=== PATIENT | female | born 1975 | race American Indian/Alaskan Native ===

== ENCOUNTER 2017-10-31 09:16 | Emergency (ER) | payer MEDICAID ==
[2017-10-31 09:17] VITALS: BMI 33.0
[2017-10-31 10:08] VITALS: BP 145/85; PULSE 71
[2017-10-31 10:42] VITALS: RESP 18; TEMP 97.8; O2SAT 99
[2017-10-31] MEDS ORDERED: Sodium Chloride 0.9% 1,000 ML IV STA (11:05)
--- NOTE | 2017-10-31 11:08 | ED PDOC ---
HPI: Female Pain Time Seen by Provider: 10/31/17 11:06 Chief Complaint (Nursing): Female Genitourinary Chief Complaint (Provider): VAGINAL BLEEDING History Per: Patient (42 Y/O FEMALE HERE WITH VAGINAL BLEEDING THIS MONTH. STATES SHE HAD 3 WEEKS OF VAGINAL BLEDING 10/02/2017 AND THEN REPEAT BLEEDING MONDAY (4 DAYS AGO). NOTES HEAVY BLEEDING. ) Past Medical History Reviewed: Historical Data, Nursing Documentation, Vital Signs Vital Signs: Last Vital Signs Temp 97.8 F 10/31/17 10:15 Pulse 71 10/31/17 10:15 Resp 18 10/31/17 10:15 BP 145/85 10/31/17 10:15 Pulse Ox 99 10/31/17 10:15 - Medical History PMH: Anxiety, Asthma - Family History Family History: States: No Known Family Hx - Immunization History Hx Tetanus Toxoid Vaccination: No Hx Influenza Vaccination: No Hx Pneumococcal Vaccination: No - Allergies Allergies/Adverse Reactions: Allergies Allergy/AdvReac Type Severity Reaction Status Date / Time No Known Allergies Allergy Verified 10/31/17 10:06 Review of Systems ROS Statement: Except As Marked, All Systems Reviewed And Found Negative Physical Exam - Reviewed Nursing Documentation Reviewed: Yes Vital Signs Reviewed: Yes - Physical Exam Appears: Positive for: Well, Non-toxic, No Acute Distress Head Exam: Positive for: ATRAUMATIC, NORMAL INSPECTION, NORMOCEPHALIC Skin: Positive for: Normal Color, Warm, DRY Eye Exam: Positive for: EOMI, Normal appearance, PERRL ENT: Positive for: Normal ENT Inspection Neck: Positive for: Normal, Painless ROM Cardiovascular/Chest: Positive for: Regular Rate, Rhythm Respiratory: Positive for: CNT, Normal Breath Sounds Gastrointestinal/Abdominal: Positive for: Normal Exam, Bowel Sounds, Soft Back: Positive for: Normal Inspection Extremity: Positive for: Normal ROM Neurologic/Psych: Positive for: Alert, Oriented - Laboratory Results Result Diagrams: 10/31/17 11:30 10/31/17 11:30 - ECG O2 Sat by Pulse Oximetry: 99 - Progress ED Course And Treament: PATIENT ELOPED FROM ED PRIOR TO TRANSVAGINAL US. CBC NOTED WNL. Disposition - Clinical Impression Clinical Impression: Vaginal bleeding - Patient ED Disposition Is Patient to be Admitted: No - Disposition Disposition: Left W/O Treatment Disposition Time: 14:21 Condition: STABLE Forms: [employer] (Bengali)
[2017-10-31 11:45] LABS: BASO # 0.1 K/uL (0.0-0.2); BASO % 1.1 % (0.0-2.0); EOS # 0.1 K/uL (0.0-0.7); EOS % 1.4 % (0.0-4.0); HEMOGLOBIN 12.9 g/dL (12.0-16.0); LYMPH # 2.6 K/uL (1.0-4.3); LYMPH % 36.8 % (20.0-40.0); MEAN CELL VOLUME 87.2 fl (81.0-99.0); MEAN CORPUSCULAR HEMOGLOBIN 29.4 pg (27.0-31.0); MEAN CORPUSCULAR HGB CONC 33.7 g/dL (33.0-37.0); MEAN PLATELET VOLUME 8.9 fl (7.2-11.7); MONO # 0.8 K/uL (0.0-0.8); MONO % 11.7 % (0.0-10.0); NEUT # 3.5 K/uL (1.8-7.0); NRBC % 0.2 % (0.0-0.0); RBC 4.4 Mil/uL (3.80-5.20); RED CELL DISTRIBUTION WIDTH 14.5 % (11.5-14.5); WHITE BLOOD COUNT 7.1 K/uL (4.8-10.8)
[2017-10-31 11:47] LABS: PROTHROMBIN TIME 11.2 Seconds (9.8-13.1)
[2017-10-31 11:54] LABS: ALB/GLOB RATIO 1.2 (1.0-2.1); ALBUMIN 4.1 g/dL (3.5-5.0); ALT/SGPT 28 U/L (9-52); AST/SGOT 24 U/L (14-36); BLOOD UREA NITROGEN 11 mg/dl (7-17); GFR AFRICAN-AMERICAN > 60; GFR NON-AFRICAN AMERICAN > 60
== END 2017-10-31 11:45 | disposition home or self-care (01) ==
LOC: H.ER 09:16
DX: N93.9 Abnormal uterine and vaginal bleeding, unspecified (principal); J45.909 Unspecified asthma, uncomplicated; F41.9 Anxiety disorder, unspecified

== ENCOUNTER 2017-10-31 18:21 | Emergency (ER) | payer MEDICAID ==
[2017-10-31 18:21] VITALS: BMI 33.0
--- NOTE | 2017-10-31 19:13 | ED PDOC ---
HPI: Female Pain Time Seen by Provider: 10/31/17 19:11 Chief Complaint (Nursing): Female Genitourinary Chief Complaint (Provider): VAGINAL BLEEDING History Per: Patient (42 Y/O FEMALE HERE FOR VAGINAL BLEEDING. SEEN EARLIER IN ED WITH HGB STABLE AND PENDING TRANSVAGINAL US. PATIENT ELOPED EARLIER PRIOR TO US. HAS HAD 2 ADDITIONAL PADS WITH VAGINAL BLEEDING TODAY. ) Past Medical History Reviewed: Historical Data, Nursing Documentation, Vital Signs Vital Signs: Last Vital Signs Temp 97.6 F 10/31/17 18:52 Pulse 64 10/31/17 18:52 Resp 19 10/31/17 18:52 BP 147/87 10/31/17 18:52 Pulse Ox 98 10/31/17 18:52 - Medical History PMH: Anxiety, Asthma - Family History Family History: States: No Known Family Hx - Immunization History Hx Tetanus Toxoid Vaccination: No Hx Influenza Vaccination: No Hx Pneumococcal Vaccination: No - Allergies Allergies/Adverse Reactions: Allergies Allergy/AdvReac Type Severity Reaction Status Date / Time No Known Allergies Allergy Verified 10/31/17 10:06 Review of Systems ROS Statement: Except As Marked, All Systems Reviewed And Found Negative Physical Exam - Reviewed Nursing Documentation Reviewed: Yes Vital Signs Reviewed: Yes - Physical Exam Appears: Positive for: Well, Non-toxic, No Acute Distress Head Exam: Positive for: ATRAUMATIC, NORMAL INSPECTION, NORMOCEPHALIC Skin: Positive for: Normal Color, Warm, DRY Eye Exam: Positive for: EOMI, Normal appearance, PERRL ENT: Positive for: Normal ENT Inspection Neck: Positive for: Normal, Painless ROM Cardiovascular/Chest: Positive for: Regular Rate, Rhythm Respiratory: Positive for: CNT, Normal Breath Sounds Gastrointestinal/Abdominal: Positive for: Normal Exam, Bowel Sounds, Soft Pelvic Exam: Positive for: Active Bleeding (VAGINAL BLEEDING NOTED IN VAULT MILD. NO CLOTS) Back: Positive for: Normal Inspection Extremity: Positive for: Normal ROM Neurologic/Psych: Positive for: Alert, Oriented - ECG O2 Sat by Pulse Oximetry: 98 - Progress ED Course And Treament: CBC FROM ED VISIT EARLIER TODAY STABLE. PATIENT DOES NOT WANT ANY MORE BLOODWORK TODAY. Disposition - Clinical Impression Clinical Impression: Vaginal bleeding - Patient ED Disposition Is Patient to be Admitted: Transfer of Care - Disposition Disposition: Transfer of Care Disposition Time: 20:00 Condition: FAIR Forms: [employer] (Barbadian) Patient Signed Over To: Natalie Fulton Handoff Comments: PENDING US TRANSVAGINAL
--- NOTE | 2017-10-31 22:55 | ED PDOC ---
- ECG O2 Sat by Pulse Oximetry: 98 - Progress ED Course And Treament: Case endorsed to senior writer from [facility] pending u/s EXAM: US Pelvis Complete, Transabdominal US Duplex Arterial/Venous of the Pelvis, Complete EXAM DATE/TIME: 10/31/2017 7:29 PM CLINICAL HISTORY: 42 years old, female; Signs and symptoms; Menstruation abnormalities; Irregular menstruation; Additional info: Vaginal bleeding TECHNIQUE: Real-time transabdominal pelvic ultrasound (complete) with image documentation. Real-time duplex ultrasound scan of the arterial and venous flow of the pelvis with color Doppler flow and spectral waveform analysis. COMPARISON: There are no prior studies for comparison. FINDINGS: Uterus: Uterus measures approximately 8 x 4.4 x 4.7 cm. Endometrium measures 8 mm in width. There is a small above the cyst in the cervix. Right ovary: There is a 5.6 x 5.2 x 5.3 cm simple right adnexal cyst. There is flow in the periphery of the cyst. Right ovarian parenchyma is not evaluated. Left ovary: Left ovary measures approximately 3.7 x 1.4 x 3.2 cm.There is expected blood flow on Doppler imaging. There is a dominant follicle the left ovary. Free fluid: There is no free fluid. Bladder: Bladder is partially distended. IMPRESSION: 5.6 x 5.2 x 5.3 cm simple right adnexal cyst; normal uterus and endometrium Patient educated on findings, discharged with instructions to follow up Leave Specialist in 2 -3 days. Return precautions given. Disposition - Clinical Impression Clinical Impression: Vaginal bleeding, Ovarian cyst - POA Present On Arrival: None - Disposition Disposition: Routine/Home Disposition Time: 23:15 Condition: STABLE Instructions: Ovarian Cysts, Absent or Irregular Periods
--- NOTE | 2017-10-31 22:58 | US ---
EXAM: US Pelvis Complete, Transabdominal US Duplex Arterial/Venous of the Pelvis, Complete EXAM DATE/TIME: 10/31/2017 7:29 PM CLINICAL HISTORY: 42 years old, female; Signs and symptoms; Menstruation abnormalities; Irregular menstruation; Additional info: Vaginal bleeding TECHNIQUE: Real-time transabdominal pelvic ultrasound (complete) with image documentation. Real-time duplex ultrasound scan of the arterial and venous flow of the pelvis with color Doppler flow and spectral waveform analysis. COMPARISON: There are no prior studies for comparison. FINDINGS: Uterus: Uterus measures approximately 8 x 4.4 x 4.7 cm. Endometrium measures 8 mm in width. There is a small above the cyst in the cervix. Right ovary: There is a 5.6 x 5.2 x 5.3 cm simple right adnexal cyst. There is flow in the periphery of the cyst. Right ovarian parenchyma is not evaluated. Left ovary: Left ovary measures approximately 3.7 x 1.4 x 3.2 cm.There is expected blood flow on Doppler imaging. There is a dominant follicle the left ovary. Free fluid: There is no free fluid. Bladder: Bladder is partially distended. IMPRESSION: 5.6 x 5.2 x 5.3 cm simple right adnexal cyst; normal uterus and endometrium
[2017-10-31 23:35] VITALS: BP 141/83; PULSE 67; RESP 18; TEMP 97.7; O2SAT 99
== END 2017-10-31 23:20 | disposition home or self-care (01) ==
LOC: H.ER 18:21
DX: N92.6 Irregular menstruation, unspecified (principal); J45.909 Unspecified asthma, uncomplicated; N83.209 Unspecified ovarian cyst, unspecified side; F41.9 Anxiety disorder, unspecified